=== PATIENT | male | born 1945 | race Caucasian/White ===

== ENCOUNTER → 2018-02-08 | Outpatient (CLI) | payer MEDICARE, BC ==
[~2018-02-08] MED LIST: ALLO300T PO; ASPI-496 PO; CARV12.52 PO; CHOL200074 PO; GEMF600T3 PO; GLIP5TAB10 PO; HYDR-3245 PO; LISI-170 PO; MAGN400T7 PO; METF500T5 PO; MULT-658 PO; NIAC500T4 PO; OMEG1CAP6 PO; PRAV40TA2 PO
== END | disposition home or self-care (01) ==
LOC: CFH 15:40
PROVIDERS: ATTEND Orthopaedic Surgery Orthopaedic Surgery of the Spine
DX: M51.36 Other intervertebral disc degeneration, lumbar region (principal); M48.061 Spinal stenosis, lumbar region without neurogenic claudication; M51.26 Other intervertebral disc displacement, lumbar region; I12.9 Hypertensive chronic kidney disease with stage 1 through stage 4 chronic kidney disease, or unspecified chronic kidney disease; N18.3 Chronic kidney disease, stage 3 (moderate); E11.22 Type 2 diabetes mellitus with diabetic chronic kidney disease; Z79.84 Long term (current) use of oral hypoglycemic drugs
CPT/HCPCS: 72148